=== PATIENT | male | born 1950 | race Caucasian/White ===

== ENCOUNTER → 2019-01-01 | Outpatient (CLI) | payer MEDICARE, BC ==
--- NOTE | 2019-01-01 13:56 | RADIOLOGY REPORT (SQ) ---
EXAM DESCRIPTION: T SPINE AP/LAT COMPLETED DATE/TIME: 01/01/2019 10:27 am REASON FOR STUDY: PAIN IN THORACIC SPINE COMPARISON: None. NUMBER OF VIEWS: Three views thoracic spine including swimmer's lateral at the cervicothoracic junct ion. LIMITATIONS: None. FINDINGS: No significant malalignment. Multilevel disc space narrowing with mild osteophytes. Renata r lungs with unremarkable mediastinal silhouette. OTHER: No other significant finding. IMPRESSION: Spondylosis without fracture or malalignment evident. TECHNICAL DOCUMENTATION: JOB ID: [id number] Reading location - IP/workstation name: [email or web address]
== END ==
LOC: RAD 10:10
PROVIDERS: ATTEND Pain Medicine Interventional Pain Medicine
DX: M54.6 Pain in thoracic spine (principal); M47.892 Other spondylosis, cervical region
CPT/HCPCS: 72070